=== PATIENT | female | born 1960 | race Caucasian/White ===

== ENCOUNTER 2022-08-17 07:37 | Outpatient (REF) | payer OTHER, SELFPAY ==
--- NOTE | ~2022-08-17 | MM_ITS ---
EXAMINATION: MM DIAGNOSTIC DIGITAL BREAST TOMOSYNTHESIS, LEFT CLINICAL INFORMATION: Recall from recent outside screening mammography for asymmetric density upper left breast on MLO view. No known family history of breast cancer. TC score 9%. COMPARISON: Outside mammography from [facility]: 08/09/2022, 08/07/2021, 07/01/2015. TECHNIQUE: Digital breast tomosynthesis is performed. 2D images are generated from the tomosynthesis. The following views are obtained: Standard ML, spot MLO x2. FINDINGS: There are scattered areas of fibroglandular density (ACR BI-RADS breast composition Category b). There is a fine fibronodular parenchymal pattern similar to prior exams. The additional views show fibroglandular densities similar to prior studies dating back to 2016. There is no developing density or interval mass or architectural abnormality. Results are discussed with the patient at time of visit. MM/MM tomosynthesis added views L IMPRESSION: -No mammographic evidence of malignancy. -No significant changes from prior studies. ASSESSMENT: BI-RADS 2: Benign RECOMMENDATION: Routine annual mammography screening. This patient's information was entered into a reminder system with a target due date for their next mammogram.
== END 2022-08-17 07:38 | disposition home or self-care (01) ==
LOC: HO.MAMMO 07:37
PROVIDERS: Visit Provider Internal Medicine Medical Oncology
DX: N64.89 Other specified disorders of breast (principal)
CPT/HCPCS: 77061; 77065

== ENCOUNTER 2023-08-31 08:35 | Outpatient (REF) | payer OTHER, SELFPAY ==
--- NOTE | ~2023-08-31 | MM_ITS ---
EXAMINATION: MM SCREENING DIGITAL BREAST TOMOSYNTHESIS, BILATERAL CLINICAL INFORMATION: Screening. Asymptomatic. COMPARISON: Mammography: This study is compared with prior exams dating back to 2016. TECHNIQUE: Digital breast tomosynthesis is performed in both the craniocaudal and mediolateral oblique views along with computer-aided detection (CAD). Synthesized 2D images are generated from the tomosynthesis. FINDINGS: There are scattered areas of fibroglandular density (ACR BI-RADS breast composition Category b). There are no significant masses, abnormal calcifications, or other abnormalities. MM/MM tomosynthesis screening BI IMPRESSION: No mammographic evidence of malignancy. ASSESSMENT: BI-RADS BI-RADS 1 - Negative RECOMMENDATION: Routine annual mammography screening. 1 year F/U This examination should not preclude the clinical evaluation of a suspicious palpable abnormality. This patient's information was entered into a reminder system with a target due date for their next mammogram.
== END 2023-08-31 08:36 | disposition home or self-care (01) ==
LOC: HO.MAMMO 08:35
PROVIDERS: PCP Internal Medicine Medical Oncology; Visit Provider Internal Medicine Medical Oncology
DX: Z12.31 Encounter for screening mammogram for malignant neoplasm of breast (principal)
CPT/HCPCS: 77063; 77067

== ENCOUNTER → 2023-08-31 08:45 | Outpatient (BNV) | payer OTHER, SELFPAY | PROVIDERS: PCP Internal Medicine Medical Oncology; Visit Provider Radiology Diagnostic Radiology | DX: Z12.31 Encounter for screening mammogram for malignant neoplasm of breast (principal) | CPT/HCPCS: 77063; 77067 ==

== ENCOUNTER 2024-09-04 08:24 | Outpatient (REF) | payer OTHER, SELFPAY ==
--- OUTSIDE RECORDS SUMMARY | 2024-09-04 09:04 | XMS_ITS | Patient Health Record ---
Author Organization Trung Barkley III, MD Address [address] [place] [address] [place] [id number] Care Team Providers Care Director Product Development Name Role Phone Trung Barkley Primary Care Provider [phone] Allergies Allergen (clinical drug ingredient) Drug/Non Drug Allergy documented on EMR Reaction Allergy Type Onset Date Status chloroquine Chloroquine Phosphate Unknown Drug Allergy Active Reason For Referral No Information Medications Medication SIG (Take, Route, Frequency, Duration) Notes Start Date End Date Status buPROPion HCl ER (SR) 200 MG 1 tablet in the morning Orally Once a day 07/27/2023 Active Sertraline HCl 100 MG 1 tablet Orally Once a day 0 07/27/2023 Active Immunizations Vaccine Route Administration Date Status Comme nts COVID PFIZER Unknown 11/11/2021 Administered Influenza, quad Unknown 08/08/2015 Administered PPV 23 Unknown 02/23/2012 Administered COVID PFIZER Unknown 09/20/2020 Administered Influenza, quad Unknown 07/12/2012 Administered Influenza, quad Unknown 07/11/2022 Administered Influenza, quad Unknown 04/15/2022 Administered COVID- 19 Vaccine Unknown 05/20/2021 Administered COVID PFIZER Unknown 10/13/2020 Administered Tdap Unknown 07/30/2013 Administered Influenza, quad Unknown 04/27/2013 Administered COMIRNATY Pfizer-BioNTech Unknown 07/19/2023 Administer ed Influenza-iiv4 p-free high dose Unknown 07/11/2022 Admi nistered COVID Pfizer Bivalent Unknown 04/15/2022 Administered Social History Tobacco Use: Social History Observation Description Date Details (start date - stop date) Never Smoker NA - NA Sex Assigned At : Social History Observation Description Sex Assigned At Female Tobacco Use/Smoking Question Answer Notes Patient is a nonsmoker Additional Findings: Tobacco Non-User Aggressive non-smoker Problems Problem Type SNOMED Code ICD Code Onset Dates Problem Status W/U Status Risk Notes Problem 482693644 Overweight (E66.3) Active confirmed Her weight is stable with a body mass index of 27. We have discussed a weight loss strategy with her today. We have discussed her diet and nutrition as well. 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 Problem 391231178 History of endometrial cancer (Z85.42) Active confirmed She has had no vaginal bleeding or pelvic pain and her appetite is good. Problem 37366110 Dyspareunia in female (N94.10) Active confirmed I have given her a prescription for Estrace cream to use 3 times a week. Problem 707247932 History of major depression (Z86.59) Active confirmed Her sertraline was discontinued. Follow-up was arranged to address the hip. Propafenone. Her depression remains in remission. Encounters Encounter Location Date Provider Diagnosis Trung Barkley III, MD [address] [place] [address] [place], [place] [id number] 04/24/2024 Trung Barkley History of endometri al cancer Z85.42 and Osteoporosis screening Z13.820 Assessments Encounter Date Diagnosis (ICD Code) Assessment Notes Treat ment Notes Treatment Clinical Notes 04/24/2024 History of endometrial cancer (ICD-10 - Z85.42) 04/24/2024 Osteoporosis screening (ICD-10 - Z13.820) Plan Of Treatment Pending Test Test Name Order Date PROFILE, FASTING (COMPREHENSIVE METABOLI C) 07/19/2022 PROFILE, FASTING (COMPREHENSIVE METABOLI C) 07/27/2023 PROFILE, RANDOM (COMPREHENSIVE METABOLIC ) 10/18/2018 URIC ACID 10/18/2018 LIPID PANEL 07/19/2022 LIPID PANEL 10/18/2018 CBC w DIFF 07/19/2022 CBC w DIFF 10/18/2018 BONE DENSITY DEXA 04/24/2024 BONE DENSITY DEXA 07/27/2023 BONE DENSITY DEXA 10/18/2018 MAMMOGRAM DIGITAL BILATERAL SCREEN 07/19 MAMMOGRAM DIGITAL UNILATERAL PAUL LT 07/28 US BREAST LEFT ([facility]) 08/11/19 23 CBC WITH AUTO DIFF 07/27/2023 Lipid Panel 07/27/2023 Insurance Providers Payer Name Payer Address Payer Phone Subscriber Number Group Number Insured Name Patient Relationship to Insured Coverage Start Date Coverage End Date [facility] [address] [place] [phone] [id number] SUSAN AHUMADA Self - patient is the insured Medical (General) History Medical History History ICD Code Presbyopia H52.4 Hypermetropia, 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
--- OUTSIDE RECORDS SUMMARY | 2024-09-04 09:05 | XMS_ITS ---
Author Organization Trung Barkley III, MD Address [address] [place] [address] Care Team Providers Care Health Education Assistant Name Role Phone Trung Barkley Primary Care Provider Allergies Allergen (clinical drug ingredient) Drug/Non Drug Allergy documented on EMR Reaction Allergy Type Onset Date Status chloroquine Chloroquine Phosphate Unknown Drug Allergy Active Results Component Value Reference Range Notes URINE DIP STICK Reviewed date:07/27/2023 02:27:44 PM Interpretation: Performing Lab: Notes/Report: SG 1.010 1.005 - 1.025 pH 5.0 5.0 - 9.0 KELLY Negative Negative - NIT Negative Negative - PRO 15 Negative - Trace GLU Negative Negative - KET Negative Negative - UBG 0.2 0.1 - 1.8 TOMMY Negative 0.2 - 1.3 BLD Negative Negative - Menstrating No REASON FOR VISIT Annual Exam Medications Medication SIG (Take, Route, Frequency, Duration) Notes Start Date End Date Status buPROPion HCl ER (SR) 200 MG TAKE 1 TABLET BY MOUTH EVERY DAY IN THE MORNING Active Sertraline HCl 100 MG TAKE 1 TABLET BY M OUTH EVERY DAY FOR 30 DAYS Active buPROPion HCl ER (SR) 200 MG 1 tablet in the morning Orally Once a day for 90 days 07/27/2023 Active Sertraline HCl 100 MG 1 tablet Orally On ce a day for 90 days 07/27/2023 Active Social History Tobacco Use: Social History Observation Description Date Details (start date - stop date) Never Smoker NA - NA Sex Assigned At : Social History Observation Description Sex Assigned At Female Tobacco Use/Smoking Question Answer Notes Patient is a nonsmoker Additional Findings: Tobacco Non-User Aggressive non-smoker Alcohol Screen Question Answer Notes Did you have a drink containing alcohol in the p ast year? No Points 0 Interpretation Negative Vital Signs Temperature 98.4 degrees Fahrenheit 07/27/19 24 Blood pressure systolic 110 mm Hg 07/27/19 24 Blood pressure diastolic 80 mm Hg 024 Heart Rate 78 /min 07/27/2023 Height 65 in 07/27/2023 Weight 165 lbs 07/27/2023 BMI 27.45 kg/m2 07/27/2023 Encounters Encounter Location Date Provider Diagnosis Trung Barkley III, MD [address] [place] [address] [place] [address] 07/27/2023 Trung Barkley Overweight E66.3 ; Dyspareunia in female N94.10 ; History of major depression Z86.59 ; Presbyopia H52.4 and History of endometrial cancer Z85.42 Assessments Encounter Date Diagnosis (ICD Code) Assessment Notes Treatment Notes Treatment Clinical Notes 07/27/2023 Overweight (ICD-10 - E66.3) Her weight is stable with a body mass index of 27. We have discussed a weight loss strategy with her today. We have discussed her diet and nutrition as well. 07/27/2023 Dyspareunia in female (ICD-10 - N94.10) I have given her a prescription for Estrace cream to use 3 times a week. 07/27/2023 History of major depression (ICD-10 - Z86.59) Her sertraline was discontinued. Follow-up was arranged to address the hip. Propafenone. Her depression remains in remission. 07/27/2023 Presbyopia (ICD-10 - H52.4) She reports no change in her visual acuity. 07/27/2023 History of endometrial cancer (ICD-10 - Z85.42) She has had no vaginal bleeding or pelvic pain and her appetite is good. Plan Of Treatment Medication Medication Name Sig Start Date Stop Date Notes buPROPion HCl ER (SR) 200 MG TAKE 1 TABL ET BY MOUTH EVERY DAY IN THE MORNING Sertraline HCl 100 MG TAKE 1 TABLET BY M OUTH EVERY DAY FOR 30 DAYS buPROPion HCl ER (SR) 200 MG 1 tablet in the morning Orally Once a day for 90 days 07/27/2023 Sertraline HCl 100 MG 1 tablet Orally On ce a day for 90 days 07/27/2023 Pending Test Test Name Order Date PROFILE, FASTING (COMPREHENSIVE METABOLI C) 07/27/2023 BONE DENSITY DEXA 07/27/2023 CBC WITH AUTO DIFF 07/27/2023 Lipid Panel 07/27/2023 Next Appt Details Follow Up: 1 Year, Reason: A nnual Exam Progress Notes * SUSAN AHUMADA ADOB: [birth year] (62 yo F)Acc No.[id number]:07/27/2023 Progress Notes Patient:?SUSAN AHUMADA Provider:?Trung Barkley MD :1960???Age:62 Y???Sex:Female D ate:07/27/2023 Address:[address] [place] [address] JANETTE Conroy [id number] Subjective: * Chief Complaints: * ???Annual Exam * HPI: ???Depression Screening:?PHQ-9?Little interest or pleasure in doing things?Not at all ?Feeling down, depressed, or hopeless?Not at all ?Trouble falling or staying asleep, or sleeping too much?Several days ?Feeling tired or having little energy?Several days ?Poor appetite or overeating?Several days ?Feeling bad about yourself or that you are a failure, or have let yourself or your family down?Several days ?Trouble concentrating on things, such as reading the newspaper or watching television?Not at all ?Moving or speaking so slowly that other people could have noticed; or the opposite, being so fidgety or restless that you have been moving around a lot more than usual?Not at all ?Thoughts that you would be better off or of hurting yourself in some way?Not at all ?Total Score?4 ?Interpretation?Minimal Depression ? She returns to the office at the age of 62 for her annual physical examination. She says she has been feeling alive and well. She is followed here for a history of major depression, a history of endometrial cancer treated with hysterectomy, overweight and osteoporosis. She does not have a senior paralegal after her hysterectomy. She is up-to-date with mammography. She is up-to-date with colonoscopy. She denies any chest pain shortness of breath bleeding weight loss anorexia or difficulty sleeping. Since her last visit she has had no new hospitalizations invasive procedures or new allergies. ???COVID-19 Screening:?Questions?Have you experienced fever, chills, cough, sore throat, shortness of breath, difficulty breathing, muscle aches, loss of taste or smell??No ?Have you been exposed to the virus within the last 10 days??No ?Have you travelled internationally in the last 10 days??No ?Have you been exposed to COVID-19 in the past??No ???SDOH Questions:?SDOH Questions?In the past year have you been worried about losing your housing??No ?In the past year have you or any family members you live with been unable to get any of the following when it was really needed? Check all that apply:?None * ROS:?General/Constitutional:?pain?only normal aches and pains.?Chills?denies.?Fatigue?admits.?Fever?denies.?ENT:?Decreased hearing?denies.?Respiratory:?Cough?denies.?Cardiovascular:?Chest pain with exertion?denies.?Dyspnea on exertion?denies.?Shortness of breath?denies.?Gastrointestinal:?Constipation?occasional.?Decreased appetite?denies.?Diarrhea?denies.?Heartburn?denies.?Nausea?denies.?Rectal bleeding?denies.?Vomiting?denies.?Hematology:?bruising?denies.?petechiae?denies.?Swollen glands?none have been noted.?Genitourinary:?Frequent urination?at night.?Musculoskeletal:?Muscle aches?denies.?Painful joints?denies.?Sciatica?denies.?Weakness?denies.?Skin:?Itching?denies.?Rash?denies.?Skin lesion(s)?denies.?Neurologic:?Difficulty speaking?denies.?Dizziness?denies.?Headache?denies.?Low back pain?denies.?Psychiatric:?Depressed mood?denies.? * Medical History:? * Surgical History:?grade 1 en dometrial cancer, RODRIGUEZ/BSO 03/2012negative colonoscopy, [facility], to in 10 years 2002negative breast biopsy age 18 0 * Hospitalization/Major Diagno stic Procedure:?hysterectomy 2011 * Family History:?Father: dece ased 90 yrs, Dementia.?Mother: alive 86 yrs, History of myocardial infarction, cardiac conduction problems, bereavement, diagnosed with Cancer.?3 brother(s) , 2 sister(s) - healthy. .? Her 3 brothers are healthy and well, but suffered from depression. HER-2 sisters are alive and well and have depression. She has been to [place] for 10 years. She has no children. There is no family history of breast or uterine cancer.. * Social History:?Tobacco Use:?Tobacco Use/Smoking?Patient is a?nonsmoker ?Additional Findings: Tobacco Non-User?Aggressive non-smoker ???Drugs/Alcohol:?Drugs?Have you used drugs other than those for medical reasons in the past 12 months??No ?Alcohol Screen?Did you have a drink containing alcohol in the past year??No ?Points?0 ?Interpretation?Negative ???She has been to [place] Javier for 10 years. She has no children. 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 She has no exposure to toxic materials. She has studied and worked at [employer] in [place] as well. She was born in [place]. * Medications:?TakingbuPROPion HCl ER (SR) 200 MG Tablet Extended Release 12 Hour TAKE 1 TABLET BY MOUTH EVERY DAY IN THE MORNING Sertraline HCl 100 MG Tablet TAKE 1 TABLET BY MOUTH EVERY DAY FOR 30 DAYS Medication List reviewed and reconciled with the patientTaking buPROPion HCl ER (SR) 200 MG Tablet Extended Release 12 Hour TAKE 1 TABLET BY MOUTH EVERY DAY IN THE MORNING Taking Sertraline HCl 100 MG Tablet TAKE 1 TABLET BY MOUTH EVERY DAY FOR 30 DAYS Medication List reviewed and reconciled with the patient * Allergies:?Chloroquine Phosp hate: Side Effectsno[Allergies Verified] Objective: * Vitals:?Ht: 65, Wt: 165, BMI :27.45, BP: 110/80, HR: 78, Temp: 98.4, Wt-k.84. * ???Past Orders: Lab:URINE DIP STICK * Order Date 07/27/2023 07/19/2022 SG 1.010 (Ref Range: 1.005 - 1.025) 1.030 pH 5.0 (Ref Range: 5.0 - 9.0) 5.0 KELLY Negative (Ref Range: Negative -) Neg NIT Negative (Ref Range: Negative -) Neg PRO 15 (Ref Range: Negative - Trace) 15 GLU Negative (Ref Range: Negative -) Neg KET Negative (Ref Range: Negative -) Neg UBG 0.2 (Ref Range: 0.1 - 1.8) 0.2 TOMMY Negative (Ref Range: 0.2 - 1.3) Neg BLD Negative (Ref Range: Negative -) Neg Menstrating No No * Examination: ???General Examination: ?GENERAL APPEARANCE:?pleasant, well nourished, well developed, in no acute distress, calm and relaxed , overweight , , woman.?HEAD:?atraumatic, normocephalic.?EYES:?eomi, perrla, anicteric, conjugate.?EARS:?normal.?NOSE:?septum intact.?ORAL CAVITY:?normal, unremarkable.?NECK/THYROID:?no jugular venous distention, no carotid bruit, thyroid normal.?LYMPH NODES:?no enlarged lymph nodes,spleen normal.?SKIN:?no suspicious lesions, anicteric.?HEART:?no clicks, gallops, murmurs, or rubs, regular rhythm, S1, S2 normal, no s3, or vascular bruits.?LUNGS:?clear to auscultation .?BREASTS:?no masses palpable bilaterally , no dimpling , no discharge , no drainage , nontender , symmetrical.?ABDOMEN:?bowel sounds normal, no ascites, no organomegaly, no mass.?RECTAL EXAM:?not examined.?MUSCULOSKELETAL:?extremities unremarkable, no clubbing, cyanosis or edema.?PERIPHERAL PULSES:?normal.?NEUROLOGIC:?alert and oriented, cranial nerves 2-12 grossly intact, deep tendon reflexes 2+ symmetrical, motor strength normal upper and lower extremities, sensory exam intact.?PSYCH:?alert, oriented , thought process logical, goal directed , speech clear , mood/affect full range , judgement and insight good , good eye contact , cooperative with exam , cognitive function intact.? Assessment: * Assessment: 1.?Dyspareunia in female - N 94.10, I have given her a prescription for Estrace cream to use 3 times a week.?2.?Overweight - E66.3, Her weight is stable with a body mass index of 27. We have discussed a weight loss strategy with her today. We have discussed her diet and nutrition as well.?3.?History of major depression - Z86.59, Her sertraline was discontinued. Follow-up was arranged to address the hip. Propafenone. Her depression remains in remission.?4.?Presbyopia - H52.4, She reports no change in her visual acuity.?5.?History of endometrial cancer - Z85.42, She has had no vaginal bleeding or pelvic pain and her appetite is good.? Plan: * Treatment: 2.?Others? Continue buPROPion HCl ER (SR) Tablet Extended Release 12 Hour, 200 MG, TAKE 1 TABLET BY MOUTH EVERY DAY IN THE MORNING;?Continue Sertraline HCl Tablet, 100 MG, TAKE 1 TABLET BY MOUTH EVERY DAY FOR 30 DAYS;?Start buPROPion HCl ER (SR) Tablet Extended Release 12 Hour, 200 MG, 1 tablet in the morning, Orally, Once a day, 90 days, 90 Tablet, Refills 3;?Start Sertraline HCl Tablet, 100 MG, 1 tablet, Orally, Once a day, 90 days, 90 Tablet, Refills 3.?? * Imaging:? * ?Imaging: BONE DENSITY D EXA * Labs:? * ?Lab: URINE DIP STICK ? Value Reference Range ?SG 1.010 1.005 - 1.025 * ?pH 5.0 5.0 - 9.0 * ?KELLY Negative Negative - * ?NIT Negative Negative - * ?PRO 15 Negative - Trac e * ?GLU Negative Negative - * ?KET Negative Negative - * ?UBG 0.2 0.1 - 1.8 * ?TOMMY Negative 0.2 - 1.3 * ?BLD Negative Negative - * ?Menstrating No * Procedure Codes:?21124 URINE -NO MICRO * Preventive Medicine:? ??Counseling:?Care goal follow-up plan:?Counseling for abnormal BMI given?Yes ?Above Normal BMI Follow-up?Dietary management education, guidance, and counseling, Dietary needs education, Exercise promotion: strength training, Exercise promotion: stretching, Feeding regime, Giving encouragement to exercise, Lifestyle education regarding diet, Nutrition / feeding management, Nutrition therapy, Prescribed activity/exercise education, Prescribed diet education, Prescribed dietary intake, Special diet education, Weight monitoring , Intervention, Order not done: Medical or Other reason not done * Follow Up:?1 Year (Reason: A nnual Exam) * Images: * Sign off status: Completed true * Provider:?Trung Barkley MD Date:?06/29 Generated for Farida rockwell/Stefania/Rachelsmvishnu on:?09/04/2024 09:05 AM EDT History and Physical Notes * HPI (History of Present Illness) Category Sub-Category Detail Notes Depression Screening PHQ-9 Little inte rest or pleasure in doing things: Not at all Feeling down, depressed, or hopeless: No t at all Trouble falling or staying asleep, or sl eeping too much: Several days Feeling tired or having little energy: S everal days Poor appetite or overeating: Several day s Feeling bad about yourself o r that you are a failure, or have let yourself or your family down: Several days Trouble concentrating on thi ngs, such as reading the newspaper or watching television: Not at all Moving or speaking so slowly that other people could have noticed; or the opposite, being so fidgety or restless that you have been moving around a lot more than usual: Not at all Thoughts that you would be b adam off or of hurting yourself in some way: Not at all Total Score: 4 Interpretation: Minimal Depression COVID-19 Screening Questions Have you had any new onset fever, chills, cough, congestion, sore throat, shortness of breath, muscle aches?: No Have you been exposed to the virus withi n the last 10 days?: No Have you travelled internationally in [facility] last 10 days?: No Have you been exposed to COVID-19 in the past?: No SDOH Questions SDOH Questions In the past year have you been worried about losing your housing?: No In the past year have you or any family members you live with been unable to get any of the following when it was really needed? Check all that apply:: None Examination Category Sub-Category Detail Notes General Examination GENERAL APPEARANCE: pleasant , well nourished, well developed, in no acute distress, calm and relaxed , overweight , , woman HEAD: atraumatic, normocep halic EYES: eomi, perrla, anicte rosemary, conjugate EARS: normal NOSE: septum intact NECK/THYROID: no jugular venous di stention, no carotid bruit, thyroid normal HEART: no clicks, gallops, murmurs, or rubs, regular rhythm, S1, S2 normal, no s3, or vascular bruits LUNGS: clear to auscultatio n ABDOMEN: bowel sounds normal, no ascites, no organomegaly, no mass NEUROLOGIC: alert and oriented, cranial nerves 2-12 grossly intact, deep tendon reflexes 2+ symmetrical, motor strength normal upper and lower extremities, sensory exam intact SKIN: no suspicious lesion s, anicteric PERIPHERAL PULSES: normal BREASTS: no masses palpable b ilaterally , no dimpling , no discharge , no drainage , nontender , symmetrical MUSCULOSKELETAL: extremities unremark able, no clubbing, cyanosis or edema LYMPH NODES: no enlarged lymph no melinda,spleen normal RECTAL EXAM: not examined PSYCH: alert, oriented , th ought process logical, goal directed , speech clear , mood/affect full range , judgement and insight good , good eye contact , cooperative with exam , cognitive function intact ORAL CAVITY: normal, unremarkable
--- OUTSIDE RECORDS SUMMARY | 2024-09-04 09:05 | XMS_ITS ---
Author Organization Trung Barkley III, MD Address [address] [place] [address] [place] [id number] Care Team Providers Care Fisher Eel Name Role Phone Trung Barkley Primary Care Provider [phone] Allergies Allergen (clinical drug ingredient) Drug/Non Drug Allergy documented on EMR Reaction Allergy Type Onset Date Status chloroquine Chloroquine Phosphate Unknown Drug Allergy Active REASON FOR VISIT Annual Exam Medications Medication SIG (Take, Route, Frequency, Duration) Notes Start Date End Date Status buPROPion HCl ER (SR) 200 MG 1 tablet in the morning Orally Once a day 07/27/2023 Active Sertraline HCl 100 MG 1 tablet Orally Once a day 0 07/27/2023 Active Social History Tobacco Use: Social History Observation Description Date Details (start date - stop date) Never Smoker NA - NA Sex Assigned At : Social History Observation Description Sex Assigned At Female Tobacco Use/Smoking Question Answer Notes Patient is a nonsmoker Additional Findings: Tobacco Non-User Aggressive non-smoker Encounters Encounter Location Date Provider Diagnosis Trung Barkley III, MD [address] [place] [address] [place] [id number] 07/30/2024 Trung Barkley Plan Of Treatment Medication Medication Name Sig Start Date Stop Date Notes buPROPion HCl ER (SR) 200 MG 1 tablet in the morning Orally Once a day 07/27/2023 Sertraline HCl 100 MG 1 tablet Orally Once a day Progress Notes * SUSAN AHUMADA ADOB: [birth year] (64 yo F)Acc No.[id number]:07/30/2024 Progress Notes Patient:?SUSAN AHUMADA Provider:?Trung Barkley MD :1960???Age:63 Y???Sex:Female D ate:07/30/2024 Address:[address] [place] [address] [place] [id number] Subjective: * Chief Complaints: * ???1. Annual Exam. * HPI: ???COVID-19 Screening:?Questions?Have you had any new onset fever, chills, cough, congestion, sore throat, shortness of breath, muscle aches??No * ROS:?General/Constitutional:?pain?only normal aches and pains.?Chills?denies.?Fatigue?admits.?Fever?denies.?ENT:?Decreased hearing?denies.?Respiratory:?Cough?denies.?Cardiovascular:?Chest pain with exertion?denies.?Dyspnea on exertion?denies.?Shortness of breath?denies.?Gastrointestinal:?Constipation?denies.?Decreased appetite?denies.?Diarrhea?denies.?Heartburn?denies.?Nausea?denies.?Rectal bleeding?denies.?Vomiting?denies.?Hematology:?bruising?denies.?petechiae?denies.?Swollen glands?none have been noted.?Genitourinary:?Frequent urination?denies.?Musculoskeletal:?Muscle aches?denies.?Painful joints?denies.?Sciatica?denies.?Weakness?denies.?Skin:?Itching?denies.?Rash?denies.?Skin lesion(s)?denies.?Neurologic:?Difficulty speaking?denies.?Dizziness?denies.?Headache?denies.?Low back pain?denies.?Psychiatric:?Depressed mood?denies.? * Medical History:?Presbyopia, Hypermetropia, unspecified eye, Hx of endometrial CA, grade 1, treated surgically [facility] 2011, History of major depression, in remission, Overweight, 0, Cerumen impaction 2016, Dyspareunia, Fractured ribs, clavicles and scapula January 2022. * Surgical History:?grade 1 en dometrial cancer, [facility]/BSO 03/2012, negative colonoscopy, [facility], to in 10 years 2002, negative breast biopsy age 18 , 0 . * Hospitalization/Major Diagno stic Procedure:?hysterectomy 2011. * Family History:?Father: dece ased 90 yrs, Dementia.?Mother: alive 86 yrs, History of myocardial infarction, cardiac conduction problems, bereavement, diagnosed with Cancer.?3 brother(s) , 2 sister(s) - healthy. .? Her 3 brothers are healthy and well, but suffered from depression. HER-2 sisters are alive and well and have depression. She has been to [facility] for 10 years. She has no children. There is no family history of breast or uterine cancer.. * Social History:?Tobacco Use:?Tobacco Use/Smoking?Patient is a?nonsmoker ?Additional Findings: Tobacco Non-User?Aggressive non-smoker ???She has been to [facility] for 10 years. She has no children. 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 She has no exposure to toxic materials. She has studied and worked at [employer] in [employer] as well. She was born in [place]. * Medications:?Taking buPROPio n HCl ER (SR) 200 MG Tablet Extended Release 12 Hour 1 tablet in the morning Orally Once a day , Taking Sertraline HCl 100 MG Tablet 1 tablet Orally Once a day , Discontinued buPROPion HCl ER (SR) 200 MG Tablet Extended Release 12 Hour TAKE 1 TABLET BY MOUTH EVERY DAY IN THE MORNING , Discontinued Sertraline HCl 100 MG Tablet TAKE 1 TABLET BY MOUTH EVERY DAY FOR 30 DAYS , Medication List reviewed and reconciled with the patient * Allergies:?Chloroquine Phosp hate: Side Effects. Objective: * Vitals:? * Examination: ???General Examination: ?GENERAL APPEARANCE:?pleasant, well nourished, well developed, in no acute distress, calm and relaxed.?HEAD:?atraumatic, normocephalic.?EYES:?eomi, perrla, anicteric, conjugate.?EARS:?normal.?NOSE:?septum intact.?ORAL CAVITY:?normal, unremarkable.?NECK/THYROID:?no jugular venous distention, no carotid bruit, thyroid normal.?LYMPH NODES:?no enlarged lymph nodes,spleen normal.?SKIN:?no suspicious lesions, anicteric.?HEART:?no clicks, gallops, murmurs, or rubs, regular rhythm, S1, S2 normal, no s3, or vascular bruits.?LUNGS:?clear to auscultation .?BREASTS:??no masses palpable bilaterally.?ABDOMEN:?bowel sounds normal, no ascites, no organomegaly, no mass.?RECTAL EXAM:?not examined.?MUSCULOSKELETAL:?extremities unremarkable, no clubbing, cyanosis or edema.?PERIPHERAL PULSES:?normal.?NEUROLOGIC:?alert and oriented, cranial nerves 2-12 grossly intact, deep tendon reflexes 2+ symmetrical, motor strength normal upper and lower extremities, sensory exam intact.?PSYCH:?alert, oriented.? Assessment: Plan: * Treatment: * Images: * The named appointment provid er may or may not be the originator of this progress note, and it is not deemed complete until electronically signed by the appointment provider. Sign off status: Pending * Provider:?Trung Barkley MD Date:?08/2024 Generated for Farida rockwell/Stefania/eTransmitting on:?09/04/2024 09:04 AM EDT History and Physical Notes * HPI (History of Present Illness) Category Sub-Category Detail Notes COVID-19 Screening Questions Have you had any new onset fever, chills, cough, congestion, sore throat, shortness of breath, muscle aches?: No Examination Category Sub-Category Detail Notes General Examination GENERAL APPEARANCE: pleasant , well nourished, well developed, in no acute distress, calm and relaxed HEAD: atraumatic, normocep halic EYES: eomi, perrla, [...] normal BREASTS: no masses palpable b ilaterally MUSCULOSKELETAL: extremities unremark able, no clubbing, cyanosis or edema LYMPH NODES: no enlarged lymph no melinda,spleen normal RECTAL EXAM: not examined PSYCH: alert, oriented ORAL CAVITY: normal, unremarkable
--- OUTSIDE RECORDS SUMMARY | 2024-09-04 09:06 | XMS_ITS ---
Author Organization Trung Barkley III, MD Address [address] [place] [address] [place] [id number] Care Team Providers Care Head Operator Name Role Phone Trung Barkley Primary Care Provider [phone] REASON FOR VISIT Message Social History Sex Assigned At : Social History Observation Description Sex Assigned At Female Encounters Encounter Location Date Provider Diagnosis Trung Barkley III, MD [address] [place] [address] [place] [id number] 04/24/2024 Trung Barkley History of endometri al cancer Z85.42 and Osteoporosis screening Z13.820 Assessments Encounter Date Diagnosis (ICD Code) Assessment Notes Treat ment Notes Treatment Clinical Notes 04/24/2024 History of endometrial cancer (ICD-10 - Z85.42) 04/24/2024 Osteoporosis screening (ICD-10 - Z13.820) Plan Of Treatment Pending Test Test Name Order Date BONE DENSITY DEXA 04/24/2024 Progress Notes * SUSAN AHUMADA ADOB: [birth year] (63 yo F)Acc No.[id number]:04/24/2024 Patient:?BARNDYN SUSAN Alice :1960???Age:63 Y???Sex:Female Address:[address] [place] [address], [id number] Subjective: * Chief Complaints: * ???Message * Medical History:? * Surgical History:? * Hospitalization/Major Diagno stic Procedure:? * Medications:? Objective: * Vitals:? * Physical Examination:? Assessment: * Assessment: 1.?History of endometrial ca ncer - Z85.42???2.?Osteoporosis screening - Z13.820??? Plan: * Treatment: 2.?Osteoporosis screening?Imaging: BONE DENSITY DEXA * Procedure Codes:? * true * Date:? Generated for Farida rockwell/Stefania/Haydeeitting on:?09/04/2024 09:05 AM EDT
== END 2024-09-04 08:25 | disposition home or self-care (01) ==
LOC: HO.MAMMO 08:24
PROVIDERS: PCP Internal Medicine Medical Oncology; Visit Provider Internal Medicine Medical Oncology
DX: Z12.31 Encounter for screening mammogram for malignant neoplasm of breast (principal)
CPT/HCPCS: 77063; 77067

== ENCOUNTER → 2024-09-04 08:30 | Outpatient (BNV) | payer OTHER, SELFPAY | PROVIDERS: PCP Internal Medicine Medical Oncology; Visit Provider Internal Medicine | DX: Z12.31 Encounter for screening mammogram for malignant neoplasm of breast (principal) | CPT/HCPCS: 77063; 77067 ==